=== PATIENT | male | born 1955 | race Caucasian/White ===

== ENCOUNTER → 2020-06-15 | Outpatient (CLI) | payer OTHER ==
[~2020-06-15] MED LIST: AMLO1CAP54 PO; ASPI-889 PO; BISO1TAB8 PO; METF10007 PO; TAMS0.4C97 PO
[2020-06-18 08:52] VITALS: BP 136/77
== END ==
LOC: LAB 09:00
PROVIDERS: ATTEND Nurse Anesthetist, Certified Registered
DX: Z01.812 Encounter for preprocedural laboratory examination (principal); Z20.828 Contact with and (suspected) exposure to other viral communicable diseases; R10.9 Unspecified abdominal pain; R63.4 Abnormal weight loss
CPT/HCPCS: C9803; U0003

== ENCOUNTER → 2020-06-18 | Day surgery (SDC) | payer OTHER ==
[~2020-06-18] MED LIST changes: +GLYCOPYRROLATE 1 MG/5 ML VIAL. ONE; +IPRATRPIUM/ALBUTEROL 0.5/2.5MG 3 ML NEBU. NEB PRN; +IV RINGERS SOLUTION,LACTATED 1,000 ML IV SCH; +KETAMINE HCL IN NACL, ISO-OSM 50 MG/5 ML SYRINGE ONE; +LIDOCAINE 2% PF 5 ML VIAL. ONE; +MIDAZOLAM HCL PF 2 MG/2 ML VIAL. IV ONE; +ONDANSETRON PF 4 MG/2 ML VIAL. IV PRN; +PROPOFOL 10,000 MCG/ML (20ML) VIAL IV ONE
[2020-06-18 08:52] VITALS: BP 136/77
== END | disposition home or self-care (01) ==
LOC: SURG 06:15
PROVIDERS: ATTEND Internal Medicine Gastroenterology
DX: R10.84 Generalized abdominal pain (principal); R63.4 Abnormal weight loss; K57.30 Diverticulosis of large intestine without perforation or abscess without bleeding; K64.8 Other hemorrhoids; K63.5 Polyp of colon; K44.9 Diaphragmatic hernia without obstruction or gangrene; K22.8 Other specified diseases of esophagus; Z79.82 Long term (current) use of aspirin; Z80.0 Family history of malignant neoplasm of digestive organs; Z79.899 Other long term (current) drug therapy; Z79.84 Long term (current) use of oral hypoglycemic drugs
CPT/HCPCS: 43239; 45385; J2001; J2704; J3490; J7120